=== PATIENT | male | born 1995 | race Caucasian/White ===

== ENCOUNTER 2016-09-19 22:32 | Emergency (ER) | payer OTHER ==
--- NOTE | 2016-09-20 09:10 | XR ---
Right knee HISTORY: Pain 3 views of the right knee No previous for comparison There is chondrocalcinosis present. The patella appears somewhat superolaterally displaced on the fro ntal view which may be projectional. Bone mineralization is maintained. There may be joint effusion. IMPRESSION: Correlate for patellar dislocation, subluxation. Chondrocalcinosis. Preliminary report of fered by [facility] rad radiology.
== END 2016-09-20 00:34 | disposition home or self-care (01) ==
LOC: EC 22:32
DX: S83.91XA Sprain of unspecified site of right knee, initial encounter (principal); W18.49XA Other slipping, tripping and stumbling without falling, initial encounter; Y93.16 Activity, rowing, canoeing, kayaking, rafting and tubing
CPT/HCPCS: 99283